=== PATIENT | female | born 1940 | race Caucasian/White ===

== ENCOUNTER 2018-04-18 11:42 | Day surgery (SDC) | payer OTHER ==
[~2018-04-18] VITALS: Ht 177.8 cm; Wt 96.8 kg
[~2018-04-18 11:42] MED LIST: ALLEGRA ALLERG180 M1 PO; ATOR20 PO; Alomide10 ML BOTHEYES; DEXL60CA3 PO; Depo-Medro80 MG/1 ML IJ; ESCI10 PO; ESCI20 PO; ESTRTP VAG; Flonase 0.05% N16 GM; GABA100 PO; HYDACE10B PO; HYOS.125 PO; HYOS.125 SL; LOSARTAN-HCTZ1 EAC1 PO; METF500 PO; METO100ER PO; MUPI2TC TOP; NADO40 PO; PRED10 PO; SAVELLA50 MG PO; TIZANIDINE HCL4 MG PO
== END 2018-04-18 13:50 | disposition home or self-care (01) ==
LOC: ORSCSDS 11:42
PROVIDERS: Internal Medicine Gastroenterology
PROC: 0DBH8ZX Excision of Cecum, Via Natural or Artificial Opening Endoscopic, Diagnostic (ICD-10-PCS; principal; 2018-04-18 13:00)
PROC: 0DBN8ZX Excision of Sigmoid Colon, Via Natural or Artificial Opening Endoscopic, Diagnostic (ICD-10-PCS; principal; 2018-04-18 13:00)
PROC: 0DBK8ZX Excision of Ascending Colon, Via Natural or Artificial Opening Endoscopic, Diagnostic (ICD-10-PCS; principal; 2018-04-18 13:00)
DX: Z12.11 Encounter for screening for malignant neoplasm of colon (principal); Z86.010 Personal history of colon polyps; D12.0 Benign neoplasm of cecum; D12.2 Benign neoplasm of ascending colon; K63.5 Polyp of colon; K57.30 Diverticulosis of large intestine without perforation or abscess without bleeding; K64.8 Other hemorrhoids; K64.4 Residual hemorrhoidal skin tags; I10 Essential (primary) hypertension; G47.33 Obstructive sleep apnea (adult) (pediatric); Z87.891 Personal history of nicotine dependence; E11.9 Type 2 diabetes mellitus without complications; K74.60 Unspecified cirrhosis of liver; Z79.899 Other long term (current) drug therapy
CPT/HCPCS: 82947; 88305; J7120

== ENCOUNTER → 2018-11-02 | Outpatient (CLI) | payer OTHER ==
[2018-11-02 09:57] LABS: Source, Urine Clean Catch
[2018-11-02 11:28] LABS: Appearance, Urine Clear (Clear); Bacteria Not Seen /hpf; Bilirubin, Urine Neg (Neg); Blood, Urine Neg (Neg); Color, Urine Yellow (P-Yellow); Glucose Qualitative, Urine Neg (Normal); Ketones, Urine Neg (Neg); Leukocyte Esterase, Urine Neg (Neg); Nitrite, Urine Neg (Neg); Protein, Urine Neg (Neg); Red Blood Cells, Urine Not Seen /hpf (0-2); Squamous Epithelial Cells Few /hpf (Few); Urobilinogen, Urine NORM (Normal)
== END | disposition home or self-care (01) ==
LOC: LAB EV 09:55 → LAB SHORT 09:55
PROVIDERS: Physician Assistant
DX: R30.0 Dysuria (principal)
CPT/HCPCS: 81001; 81003

== ENCOUNTER 2019-02-06 05:56 | Inpatient (IN) | payer OTHER ==
[~2019-02-06] VITALS: Ht 175.3 cm; Wt 92.3 kg
[~2019-02-06 05:56] MED LIST changes: +AMLO5 PO; +Azasan100 MG PO; +COSAMIN DS PO; +CYAN1000I IM; +CYCL0.05OP BOTHEYES; +DULO60 PO; +FERROUS SULFATE PO; +Garlic1 EAC1 PO; +LOSARTAN-HCTZ1 EACH PO; +Loratadine10 MG PO; +PANT40 PO; +POTASSIUM PO; +SUPER B COMPLEX PO; +TURMERIC PO; +Triamcinolone A15 G3 TOP; +VITAMIN D3 PO
--- NOTE | 2019-02-06 06:38 | NUR ---
[facility] VSS ADMISSION STARTED. Ambulatory in Day Surgery Lungs clear T/O to Auscultation. Patient confirms NPO status and agrees with scheduled surgery.
[2019-02-06] MEDS ORDERED: GENPREOPSU (06:42)
[2019-02-06] MEDS ORDERED: Prednisolone Ace5 ML OP (06:43)
--- NOTE | 2019-02-06 07:41 | NUR ---
AT 0715 HAD PATINET UP AND TO BATHROOM
--- NOTE | 2019-02-06 13:20 | NUR ---
VSS. DENIES PAIN. WIGGLES FEET. TOOK SOUP AND TOAST W/O C/O. RESTING QUIETLY WITH EYES CLOSED AT THIS TIME. IVF INFUSING. PAS AND CRYOTHERAPY IN PLACE. CALL LIGHT IN PLACE.
--- NOTE | 2019-02-06 18:12 | NUR ---
SHIFT SUMMARY PATIENT STATES FULL SENSATION TO LE'S. STATES NO PAIN AT THIS TIME AFTER PO PAIN JACK PRIZER. UP TO CHAIR WITH PT. INCONT VOID WHEN UP OOB. TAKING PO WELL. NO C/O AT THIS TIME.
[2019-02-07 04:41] LABS: BASOPHILS ABSOLUTE AUTO 0.01 K/mm3 (0.00-0.23); BASOPHILS PERCENT AUTO 0 % (0-2); EOSINOPHILS PERCENT AUTO 0 % (0-6); Hematocrit 30.7 % (33.0-51.0); Hemoglobin 10.6 g/dL (11.5-16.0); IMMATURE GRAN ABSOLUTE AUTO 0.07 K/mm3 (0.00-0.10); IMMATURE GRAN PERCENT AUTO 1 % (0-1); LYMPHOCYTES PERCENT AUTO 6 % (21-46); MONOCYTES ABSOLUTE AUTO 0.72 K/mm3 (0.16-1.47); MONOCYTES PERCENT AUTO 8 % (4-13); Mean Corpuscular HGB Conc 34.5 g/dL (31.5-36.5); Mean Corpuscular Volume 93 fL (80-100); Mean Platelet Volume 9.8 fL (9.1-12.4); NEUTROPHILS ABSOLUTE AUTO 7.51 K/mm3 (1.96-9.15); NEUTROPHILS PERCENT AUTO 85 % (41-73); Platelet Count 191 K/mm3 (150-400); RDW Coefficient Variation 13.3 % (11.7-14.2); RDW Standard Deviation 45.3 fL (35.1-46.3); Red Blood Cell Count 3.31 M/mm3 (3.80-5.20); White Blood Cell Count 8.81 K/mm3 (4.00-11.30)
[2019-02-07 05:01] LABS: Anion Gap 7 mmol/L (6-16); Blood Urea Nitrogen 20 mg/dL (8-24); Bun/Creatinine Ratio 25.8 (12.0-20.0); CO2, Blood 27 mmol/L (21-32); Calcium, Blood 8.8 mg/dL (8.5-10.1); Chloride, Blood 92 mmol/L (98-108); Creatinine, Blood 0.78 mg/dL (0.40-1.00); Glomerular Filtration Rate >60 (60-); Glucose, Blood 129 mg/dL (70-99); Magnesium, Blood 1.4 mg/dL (1.6-2.4); Potassium, Blood 3.7 mmol/L (3.5-5.5); Sodium, Blood 126 mmol/L (136-145)
--- NOTE | 2019-02-07 07:00 | NUR ---
SHIFT SUMMARY: PT POD #1 FOR LEFT TOTAL KNEE. PT A&O X4. VS WNL. PAIN MANAGED WITH 5MG OXY AND SCHED TORADOL AND TYLENOL. PT OUT OF BED TO BATHROOM W/FWW + 1 ASSIST. VOIDING. SALINE LOCKED. DIANE PO. DENIES N/V. AQUACEL CDI WITH POLAR PACK IN PLACE.
--- NOTE | 2019-02-07 11:13 | NUR ---
PT WORKING WITH THERAPY.
[2019-02-07] MEDS ORDERED: OXYC5 PO (16:33)
[2019-02-07] MEDS ORDERED: ACET500 PO (16:40)
[2019-02-07] MEDS ORDERED: Aspirin325 MG PO (16:42)
--- NOTE | 2019-02-07 17:10 | NUR ---
DISCHARGE: PT EATING AND DRINKING WELL. PT PASSING GAS AND VOIDING. PT REPORTS PAIN TOLERABLE ON PO PAIN MEDICATION. PT BEEN CLEARED BY THERAPY TO GO HOME. PT BEEN CLEARED BY DR TO GO HOME TODAY. PT REPORTS HAVING APPR EQUIP AT HOME. PT SENT WITH DRESSING SUPPLIES AND ICE MACHINE. PT AND FAMILY REPORTS UNDERSTANDING OF DISCHARGE INSTRUCTIONS.
--- NOTE | 2019-02-09 13:24 | NUR ---
02/09/19 1324 Sally Leslie VERIFICATIONS: EDIT CHART.
== END 2019-02-07 17:20 | disposition home or self-care (01) | DRG 470 ==
LOC: ORSCMMR 05:56 → ORD 07:30 → ORSCMMR 07:49 → SURS 07:49 → ORD 08:30 → SURS 11:48
PROVIDERS: ADMIT Orthopaedic Surgery
PROC: 0SRD0J9 Replacement of Left Knee Joint with Synthetic Substitute, Cemented, Open Approach (ICD-10-PCS; principal; 2019-02-06 07:30)
DX: M17.12 Unilateral primary osteoarthritis, left knee (principal); I10 Essential (primary) hypertension; E11.9 Type 2 diabetes mellitus without complications; G47.33 Obstructive sleep apnea (adult) (pediatric); Z88.2 Allergy status to sulfonamides
CPT/HCPCS: 36415; 73560-LT; 80048; 82947; 83735; 85025; 88300; 94762; 97110; 97116; 97162; 97530; C1713; C1776; J0171; J0690; J0735; J1100; J1885; J2250; J2370; J2405; J2704; J2795; J7120; J7500

== ENCOUNTER → 2019-04-09 | Outpatient (CLI) | payer OTHER ==
[~2019-04-09] MED LIST changes: +ACET500 PO; +Aspirin325 MG PO; +GENPREOPSU; +OXYC5 PO; +Prednisolone Ace5 ML OP
[2019-04-09 08:48] LABS: Microalb/Creat Ratio UR, Rand Unable to Calculate mg/g (0.000-30.000); Microalbumin, Random Urine <5.000 mg/L (0.000-20.000)
== END | disposition home or self-care (01) ==
LOC: LAB EV 06:29
PROVIDERS: Family Medicine
DX: E78.49 Other hyperlipidemia (principal); I10 Essential (primary) hypertension; E11.9 Type 2 diabetes mellitus without complications
CPT/HCPCS: 82043; 82570

== ENCOUNTER 2020-02-09 08:25 | Day surgery (SDC) | payer OTHER ==
[~2020-02-09] VITALS: Ht 175.3 cm; Wt 86.5 kg
[2020-02-09] MEDS ORDERED: LOSA50 PO (09:31)
[2020-02-09] MEDS ORDERED: DIVA500ER PO (09:33)
[2020-02-09] MEDS ORDERED: CEPH500 PO (09:36)
[2020-02-09] MEDS ORDERED: EMGALITY120 MG/1 M SC (09:39)
[2020-02-09] MEDS ORDERED: ATOR20 PO (09:40)
[2020-02-09] MEDS ORDERED: IMITREX100 MG PO (09:41)
[2020-02-09] MEDS ORDERED: IMITREX6 MG/0.51 SC (09:42)
--- NOTE | 2020-02-09 12:03 | NUR ---
02/09/20 1203 Lorri Schultz SUCTIONED SMALL AMOUNT OF BLOOD FROM ORAL CAVITY AFTER OPA WAS REMOVED.
== END 2020-02-09 13:01 | disposition home or self-care (01) ==
LOC: ORSCSDS 08:25
PROVIDERS: Otolaryngology
PROC: 0NSBXZZ Reposition Nasal Bone, External Approach (ICD-10-PCS; principal; 2020-02-09 11:30)
DX: S02.2XXA Fracture of nasal bones, initial encounter for closed fracture (principal); I10 Essential (primary) hypertension; E11.9 Type 2 diabetes mellitus without complications; G47.33 Obstructive sleep apnea (adult) (pediatric); Z87.891 Personal history of nicotine dependence; Z79.84 Long term (current) use of oral hypoglycemic drugs; Z79.899 Other long term (current) drug therapy
CPT/HCPCS: 82947; C9046; J0330; J1100; J2250; J2405; J2704; J3010; J7120

== ENCOUNTER 2022-02-10 15:15 | Emergency (ER) | payer OTHER ==
[~2022-02-10] VITALS: Ht 177.8 cm; Wt 95.2 kg
[~2022-02-10 15:15] MED LIST changes: +CEPH500 PO; +DIVA500ER PO; +EMGALITY120 MG/1 M SC; +GABA300; +IMITREX100 MG PO; +IMITREX6 MG/0.51 SC; +LOSA50 PO; +MYRBETRIQ50 MG
== END 2022-02-10 18:10 | disposition home or self-care (01) ==
LOC: ER 15:15
DX: M54.50 Low back pain, unspecified (principal); M48.54XA Collapsed vertebra, not elsewhere classified, thoracic region, initial encounter for fracture; M51.36 Other intervertebral disc degeneration, lumbar region; M47.9 Spondylosis, unspecified; K59.00 Constipation, unspecified; Z88.2 Allergy status to sulfonamides; Z79.899 Other long term (current) drug therapy; Z87.891 Personal history of nicotine dependence
CPT/HCPCS: 72100; J1100; J1170

== ENCOUNTER 2022-03-01 12:07 | Inpatient (IN) | payer OTHER ==
[~2022-03-01] VITALS: Ht 177.8 cm; Wt 93.7 kg
[~2022-03-01 12:07] MED LIST changes: -GABA300; +GABA300 PO; +Norco 5-325 Ta1 EACH PO
[2022-03-01 13:13] LABS: BASOPHILS ABSOLUTE AUTO 0.01 K/mm3 (0.00-0.23); BASOPHILS PERCENT AUTO 0 % (0-2); EOSINOPHILS ABSOLUTE AUTO 0.02 K/mm3 (0.00-0.68); EOSINOPHILS PERCENT AUTO 0 % (0-6); Hematocrit 37.5 % (33.0-51.0); Hemoglobin 13.5 g/dL (11.5-16.0); IMMATURE GRAN ABSOLUTE AUTO 0.04 K/mm3 (0.00-0.10); IMMATURE GRAN PERCENT AUTO 1 % (0-1); LYMPHOCYTES ABSOLUTE AUTO 0.64 K/mm3 (0.84-5.20); LYMPHOCYTES PERCENT AUTO 9 % (21-46); MONOCYTES ABSOLUTE AUTO 1.03 K/mm3 (0.16-1.47); MONOCYTES PERCENT AUTO 14 % (4-13); Mean Corpuscular HGB 31.3 pg (26.0-34.0); Mean Corpuscular Volume 87 fL (80-100); Mean Platelet Volume 9.5 fL (9.1-12.4); NEUTROPHILS ABSOLUTE AUTO 5.82 K/mm3 (1.96-9.15); NEUTROPHILS PERCENT AUTO 77 % (41-73); Platelet Count 225 K/mm3 (150-400); RDW Coefficient Variation 13.4 % (11.7-14.2); Red Blood Cell Count 4.32 M/mm3 (3.80-5.20); White Blood Cell Count 7.56 K/mm3 (4.00-11.30)
[2022-03-01 13:32] LABS: Albumin, Blood 3.7 g/dL (3.4-5.0); Albumin/Globulin Ratio 0.9 (0.8-1.8); Bilirubin, Total 1.3 mg/dL (0.1-1.0); Bun/Creatinine Ratio 18.5 (12.0-20.0); Calcium, Blood 9.4 mg/dL (8.5-10.1); Creatinine, Blood 0.7 mg/dL (0.40-1.00); Globulin, Blood 3.9 g/dL (2.2-4.0); Potassium, Blood 3.7 mmol/L (3.5-5.5); Total Protein, Blood 7.6 g/dL (6.4-8.2)
[2022-03-01 13:43] LABS: Source, Urine Foley catheter
[2022-03-01 13:51] LABS: Appearance, Urine Hazy (Clear); Bilirubin, Urine Neg (Neg); Blood, Urine 1+ (Neg); Color, Urine Yellow (P-Yellow); Glucose Qualitative, Urine Neg (Neg); Ketones, Urine 1+ (Neg); Leukocyte Esterase, Urine Neg (Neg); Nitrite, Urine Neg (Neg); Protein, Urine 2+ (Neg); Specific Gravity, Urine 1.015 (1.003-1.022); Urobilinogen, Urine NORM (Normal)
[2022-03-01 14:45] LABS: Amorphous Heavy (0-Heavy); Bacteria Mod /hpf; Red Blood Cells, Urine 0-2 /hpf (0-2); Renal Epithelial Rare /hpf (0-Rare); Squamous Epithelial Cells Rare /hpf (Few); Transitional Epithelial Cells Few /hpf (0-Rare)
[2022-03-01 15:06] LABS: U Amphetamine Screen Not Detected; U Barbituate Screen Not Detected; U Benzodiazapine Screen Not Detected; U Buprenorphine Screen Not Detected; U Cannabinoids Screen Not Detected; U Cocaine Screen Not Detected; U Methadone Screen Not Detected; U Methamphetamine Screen Not Detected; U Opiates Screen DETECTED; U Oxycodone Screen Not Detected; U Phencyclidine Screen Not Detected; U Propoxyphene Screen Not Detected
[2022-03-01 16:17] LABS: Influenza A, PCR NEGATIVE (NEGATIVE); Influenza B, PCR NEGATIVE (NEGATIVE); Resp Syncytial Virus, PCR NEGATIVE (NEGATIVE); SARS-Cov-2 (COVID-19) PCR, MMC NEGATIVE (NEGATIVE)
--- NOTE | 2022-03-01 19:25 | NUR ---
REPORT RECEIVED FROM MICHAELLE DAIGLE RN. PT TX TO ROOM 309 VIA [employer]. PT ORIENTED TO ROOM/CALL LIGHT. REPORT GIVEN TO SILVINO/CHERRY WEBBER.
--- NOTE | 2022-03-02 04:36 | NUR ---
SHIFT SUMMARY ADMITTED THIS SHIFT FOR AMS/BACK PAIN. PLAN IS FOR THERAPY PLACEMENT. FULL CODE. HX OF FALLS. THORACIC COMPRESSION FRACTURE. SPOUSE IN ROOMPT IS CONFUSED AND FORGETFUL. PHYSICAL AND OCCUPATIONAL THERAPIES ASSISTING WITH PT. PT SLEPT THROUGHOUT SHIFT.
[2022-03-02 05:36] LABS: BASOPHILS ABSOLUTE AUTO 0.02 K/mm3 (0.00-0.23); BASOPHILS PERCENT AUTO 0 % (0-2); EOSINOPHILS ABSOLUTE AUTO 0.06 K/mm3 (0.00-0.68); EOSINOPHILS PERCENT AUTO 1 % (0-6); Hemoglobin 14.1 g/dL (11.5-16.0); IMMATURE GRAN ABSOLUTE AUTO 0.02 K/mm3 (0.00-0.10); IMMATURE GRAN PERCENT AUTO 0 % (0-1); LYMPHOCYTES ABSOLUTE AUTO 0.74 K/mm3 (0.84-5.20); LYMPHOCYTES PERCENT AUTO 12 % (21-46); MONOCYTES ABSOLUTE AUTO 0.67 K/mm3 (0.16-1.47); MONOCYTES PERCENT AUTO 11 % (4-13); Mean Corpuscular HGB 31.4 pg (26.0-34.0); Mean Corpuscular HGB Conc 36.2 g/dL (31.5-36.5); Mean Corpuscular Volume 87 fL (80-100); Mean Platelet Volume 9.4 fL (9.1-12.4); NEUTROPHILS ABSOLUTE AUTO 4.49 K/mm3 (1.96-9.15); NEUTROPHILS PERCENT AUTO 75 % (41-73); Platelet Count 235 K/mm3 (150-400); RDW Coefficient Variation 13.3 % (11.7-14.2); RDW Standard Deviation 41.8 fL (35.1-46.3); Red Blood Cell Count 4.49 M/mm3 (3.80-5.20)
--- NOTE | 2022-03-02 05:36 | NUR ---
URINARY INCONTINENCE PT HAD A PUREWICK PLACED UPON ADMIT TO THE MEDICAL FLOOR BUT ONLY HAD TRACE AMOUNTS OF URINE DRAINED AFTER 8 HOURS. A BLADDER SCAN WAS DONE AND READ 736 ML. WE STARTED TO AMBULATE THE PT TO THE BEDSIDE COMMODE AND SHE VOIDED IMMEDIATLY UPON STANDING.
[2022-03-02 06:14] LABS: Bun/Creatinine Ratio 22.2 (12.0-20.0); Calcium, Blood 9.3 mg/dL (8.5-10.1); Creatinine, Blood 0.54 mg/dL (0.40-1.00); Potassium, Blood 3.3 mmol/L (3.5-5.5); Thyroid Stimulating Hormone 4.09 uIU/mL (0.360-4.800)
[2022-03-02 10:42] LABS: BASOPHILS ABSOLUTE AUTO 0.02 K/mm3 (0.00-0.23); BASOPHILS PERCENT AUTO 1 % (0-2); EOSINOPHILS ABSOLUTE AUTO 0.04 K/mm3 (0.00-0.68); EOSINOPHILS PERCENT AUTO 1 % (0-6); Hematocrit 36.2 % (33.0-51.0); Hemoglobin 13.2 g/dL (11.5-16.0); IMMATURE GRAN ABSOLUTE AUTO 0.02 K/mm3 (0.00-0.10); IMMATURE GRAN PERCENT AUTO 1 % (0-1); LYMPHOCYTES ABSOLUTE AUTO 0.45 K/mm3 (0.84-5.20); LYMPHOCYTES PERCENT AUTO 11 % (21-46); MONOCYTES ABSOLUTE AUTO 0.51 K/mm3 (0.16-1.47); MONOCYTES PERCENT AUTO 12 % (4-13); Mean Corpuscular HGB 31.7 pg (26.0-34.0); Mean Corpuscular HGB Conc 36.5 g/dL (31.5-36.5); Mean Corpuscular Volume 87 fL (80-100); Mean Platelet Volume 9.7 fL (9.1-12.4); NEUTROPHILS ABSOLUTE AUTO 3.16 K/mm3 (1.96-9.15); NEUTROPHILS PERCENT AUTO 75 % (41-73); Platelet Count 180 K/mm3 (150-400); RDW Coefficient Variation 13.2 % (11.7-14.2); RDW Standard Deviation 42.1 fL (35.1-46.3); Red Blood Cell Count 4.17 M/mm3 (3.80-5.20)
[2022-03-02 11:09] LABS: Albumin, Blood 3.5 g/dL (3.4-5.0); Albumin/Globulin Ratio 0.9 (0.8-1.8); Bilirubin, Total 1.5 mg/dL (0.1-1.0); Bun/Creatinine Ratio 22.7 (12.0-20.0); Calcium, Blood 8.9 mg/dL (8.5-10.1); Creatinine, Blood 0.49 mg/dL (0.40-1.00); Globulin, Blood 3.9 g/dL (2.2-4.0); Potassium, Blood 3.3 mmol/L (3.5-5.5); Total Protein, Blood 7.4 g/dL (6.4-8.2)
--- NOTE | 2022-03-02 15:56 | NUR ---
DR. LINK CONTACTED REGAURDING PT'S HTN. PLAN TO REVIEW MEDS AND ADJUST TO BETTER CONTROL HTN.
--- NOTE | 2022-03-02 18:36 | NUR ---
SHIFT SUMMARY PT A&OX 3 AND IN PLEASENT MOOD T/O SHIFT. PT IN TO SEE PT T/O VISITING HOURS. PT WORKED W/ SPEECH, OCCUPATION, AND PHYSICAL THERAPY T/O SHIFT. BED ALARM IN PLACE. CALL LIGHT W/IN REACH. HTN MEDICATED AND REPORTED TO DR. GARAY MEDICATED PER EMAR AND HEAT PAD.
--- NOTE | 2022-03-03 04:06 | NUR ---
KEYING MACHINE OPERATOR SUMMARY PT SPOUSE AT BEDSIDE. PT IS A/OX3. PT IS IS SLOW TO RESPOND AND SLOW TO FOLLOW COMMANDS. INCONTINENT OF URINE. ASSITED PT TO BSC AND SHE LEAKED URINE DURING THE XFER. PT RETAINING URINE; BLADDER SCAN 444MLS AFTER VOIDING. OBTAINED ORDER AND USED STRAIGHT CATH TO DRAIN 750MLS FROM BLADDER. PT WAS RESTLESS WITH FULL BLADDER AND CONTINUED TO TRY TO GET OUT OF BED. PT FORGETS LIMITATIONS AND IS A 2 PERSON MAX ASSIST. EDUCATED PT/AND ABOUT BLOOD PRESSURE MEDICATIONS AND INSULIN. PT IS PLEASANT AND COOPERATIVE BUT APPEARS ANXIOUS AND TEARY AT TIMES.
[2022-03-03 05:30] LABS: BASOPHILS ABSOLUTE AUTO 0.02 K/mm3 (0.00-0.23); BASOPHILS PERCENT AUTO 1 % (0-2); EOSINOPHILS ABSOLUTE AUTO 0.04 K/mm3 (0.00-0.68); EOSINOPHILS PERCENT AUTO 1 % (0-6); Hematocrit 36.7 % (33.0-51.0); Hemoglobin 13.2 g/dL (11.5-16.0); IMMATURE GRAN ABSOLUTE AUTO 0.02 K/mm3 (0.00-0.10); IMMATURE GRAN PERCENT AUTO 1 % (0-1); LYMPHOCYTES PERCENT AUTO 15 % (21-46); MONOCYTES ABSOLUTE AUTO 0.55 K/mm3 (0.16-1.47); MONOCYTES PERCENT AUTO 14 % (4-13); Mean Corpuscular HGB 31.4 pg (26.0-34.0); Mean Corpuscular Volume 87 fL (80-100); Mean Platelet Volume 9.4 fL (9.1-12.4); NEUTROPHILS ABSOLUTE AUTO 2.68 K/mm3 (1.96-9.15); NEUTROPHILS PERCENT AUTO 69 % (41-73); Platelet Count 206 K/mm3 (150-400); RDW Coefficient Variation 13.2 % (11.7-14.2); RDW Standard Deviation 42.4 fL (35.1-46.3); White Blood Cell Count 3.91 K/mm3 (4.00-11.30)
[2022-03-03 06:04] LABS: Albumin, Blood 3.4 g/dL (3.4-5.0); Albumin/Globulin Ratio 0.8 (0.8-1.8); Bun/Creatinine Ratio 14.4 (12.0-20.0); Calcium, Blood 8.9 mg/dL (8.5-10.1); Creatinine, Blood 0.49 mg/dL (0.40-1.00); Globulin, Blood 4.1 g/dL (2.2-4.0); Magnesium, Blood 1.2 mg/dL (1.6-2.4); Phosphorus, Blood 2.2 mg/dL (2.5-4.9); Potassium, Blood 3.7 mmol/L (3.5-5.5); Total Protein, Blood 7.5 g/dL (6.4-8.2)
--- NOTE | 2022-03-03 07:07 | NUR ---
ROLLING MILL OPERATOR HELPER SUMMARY ADD PT UNABLE TO VOID COMPLETELY; BLADDER SCAN SHOWED 518MLS URINE RETAINED. PERFORMED STRAIGHT CATH; DRAINED 650MLS URINE; YELLOW/CLEAR.
--- NOTE | 2022-03-03 16:49 | NUR ---
SHIFT SUMMARY PT A&OX 3 AND IN PLEASENT MOOD T/O SHIFT. IN W/ PT T/O SHIFT ASSISTING W/ CARE. PT VOIDING MIN. AMOUNTS BLADDER SCANNING T/O SHIFT-PLANNING TO STRAIGHT CATH PT. PRN. PT EATING MINIMAL AMOUNTS OF PUREE, SPOUSE VERBALIZING CONCERN. UP TO BSC, 2X MAX ASSIST. CALL LIGHT W/IN REACH.
[2022-03-04 01:21] LABS: Source, Urine Foley catheter
[2022-03-04 01:31] LABS: Bilirubin, Urine Neg (Neg); Blood, Urine 1+ (Neg); Glucose Qualitative, Urine Neg (Neg); Ketones, Urine Neg (Neg); Leukocyte Esterase, Urine 1+ (Neg); Nitrite, Urine Neg (Neg); Protein, Urine 2+ (Neg); Specific Gravity, Urine 1.005 (1.003-1.022); Urobilinogen, Urine NORM (Normal)
[2022-03-04 01:39] LABS: Appearance, Urine Hazy (Clear); Color, Urine Yellow (P-Yellow)
[2022-03-04 01:40] LABS: Bacteria Many /hpf; Red Blood Cells, Urine 0-2 /hpf (0-2); Squamous Epithelial Cells Not Seen /hpf (Few); White Blood Cells, Urine 50-100 /hpf (0-5)
--- NOTE | 2022-03-04 05:40 | NUR ---
MAINTENANCE MECHANIC TECHNICIAN SUMMARY PT IS PLEASANT AND COOPERATIVE. A/OX3; AMS. MOVES BETWEEN CONFUSED AND CONTRETE THINKING. PT PULLED OUT LEFT IV ACCESS. MULTIPLE FAILED ATTEMPTS TO START IV; ICU NURSE INSTERTED HIMA POWER GLIDE. CONTINOUS IV FLUIDS RUNNING AT 75MLS HOUR. PT TO BSC TWICE AND UNABLE TO COMPLETELY EMPTY BLADDER. PLACED AYALA; DRAINING TO GRAVITY. URINE SHOWS POSSIBLE UTI. PT ON CPAP T/O NIGHT. CALL LIGHT IN REACH. AT BEDSIDE.
[2022-03-04 05:41] LABS: Bun/Creatinine Ratio 12.3 (12.0-20.0); Creatinine, Blood 0.57 mg/dL (0.40-1.00); Potassium, Blood 3.6 mmol/L (3.5-5.5)
--- NOTE | 2022-03-04 18:14 | NUR ---
SHIFT SUMMARY PT A&OX3 AND IN PLEASENT MOOD T/O SHIFT. @ BEDSIDE T/O SHIFT. CALL LIGHT W/ IN REACH. TOLERATING PO INTAKE. LOOSE BM THIS SHIFT, PLAN TO HOLD BOWEL MEDS. VSS. AYALA IN PLACE DRAINING TO GRAVITY. NS @ 50/HR. RA.
--- NOTE | 2022-03-05 03:05 | NUR ---
TRAFFIC WORKFORCE REPRESENTATIVE SUMMARY VSS. AYALA DRAINING ELA. REMAINS AT BEDSIDE AND ASSISTS WITH PT CARE. HAS BEEN RESTING QUIETLY WITH FEW INTERRUPTIONS SINCE HS. HOB ELEVATED AT 40 DEGREES. REPOSITIONED INTERMITTENTLY FOR COMFORT AND SKIN CARE. CALL LIGHT IN REACH. ALERT TO QUESTIONS ASKED AND PLEASANT AFFECT, BUT STILL SOME CONFUSION AT TIMES. NO NOTED S/S ACUTE DISTRESS OF THIS WRITING. SCD'S IN USE
[2022-03-05 04:51] LABS: BASOPHILS ABSOLUTE AUTO 0.03 K/mm3 (0.00-0.23); BASOPHILS PERCENT AUTO 1 % (0-2); EOSINOPHILS ABSOLUTE AUTO 0.06 K/mm3 (0.00-0.68); EOSINOPHILS PERCENT AUTO 1 % (0-6); Hematocrit 36.3 % (33.0-51.0); IMMATURE GRAN ABSOLUTE AUTO 0.02 K/mm3 (0.00-0.10); IMMATURE GRAN PERCENT AUTO 0 % (0-1); LYMPHOCYTES ABSOLUTE AUTO 0.94 K/mm3 (0.84-5.20); LYMPHOCYTES PERCENT AUTO 16 % (21-46); MONOCYTES PERCENT AUTO 12 % (4-13); Mean Corpuscular HGB 31.6 pg (26.0-34.0); Mean Corpuscular HGB Conc 35.8 g/dL (31.5-36.5); Mean Corpuscular Volume 88 fL (80-100); Mean Platelet Volume 9.4 fL (9.1-12.4); NEUTROPHILS ABSOLUTE AUTO 3.99 K/mm3 (1.96-9.15); NEUTROPHILS PERCENT AUTO 70 % (41-73); Platelet Count 219 K/mm3 (150-400); RDW Coefficient Variation 13.2 % (11.7-14.2); RDW Standard Deviation 42.4 fL (35.1-46.3); Red Blood Cell Count 4.12 M/mm3 (3.80-5.20); White Blood Cell Count 5.74 K/mm3 (4.00-11.30)
[2022-03-05 05:15] LABS: Bun/Creatinine Ratio 13.2 (12.0-20.0); Calcium, Blood 8.5 mg/dL (8.5-10.1); Creatinine, Blood 0.45 mg/dL (0.40-1.00); Potassium, Blood 3.3 mmol/L (3.5-5.5)
--- NOTE | 2022-03-05 17:31 | NUR ---
SHIFT SUMMARY PT A&OX 3-4 AND IN PLEASENT MOOD T/O SHIFT. IN ROOM T/O SHIFT. AC/HS GLUCOSE CHECKS D/DANIEL THIS SHIFT, NO COVERAGE HAS BEEN INDICATED. WORKED W/ PHYSICAL, OCCUPATIONAL AND SPEECH THERAPY THIS SHIFT. DIET ADVANCED TO [facility] SOFT, PILLS WHOLE ONE AT A TIME W/ THIN LIQUIDS. SHOWERED, ABLE TO AMBULATE SAFELY 1X W/ A STEADY GAIT. CALL LIGHT W/IN REACH. AWAITING PLACEMENT @ THIS TIME.
--- NOTE | 2022-03-06 04:28 | NUR ---
WOODWORKING MACHINIST SUMMARY MORE ALERT AT SHIFT COMMENCE THN NOTED 24 HR AGO. VERBAL RESPONSE APPROPRIATE AND SEEMED TO REMEMBER LONGER THAN NOTED BEFORE. AYALA DRAINING ELA. TOLERATING PO FLUIDS. VSS. CONTINUES TO PROVIDE PT SUPPORT AT BEDSIDE. O2 PER CPAP AT NIGHT, HOB UP 30 DEGREES. CONTINUOUS PULSE OX 90'S. HAS BEEN RESTING QUIETLY WITH OCCASIONAL INTERRUPTION. CALL LIGHT IN REACH. NO NOTED S/S ACUTE DISTRESS
[2022-03-06 05:21] LABS: BASOPHILS ABSOLUTE AUTO 0.03 K/mm3 (0.00-0.23); BASOPHILS PERCENT AUTO 1 % (0-2); EOSINOPHILS ABSOLUTE AUTO 0.08 K/mm3 (0.00-0.68); EOSINOPHILS PERCENT AUTO 1 % (0-6); Hematocrit 39.2 % (33.0-51.0); Hemoglobin 14.2 g/dL (11.5-16.0); IMMATURE GRAN ABSOLUTE AUTO 0.02 K/mm3 (0.00-0.10); IMMATURE GRAN PERCENT AUTO 0 % (0-1); LYMPHOCYTES ABSOLUTE AUTO 0.76 K/mm3 (0.84-5.20); LYMPHOCYTES PERCENT AUTO 13 % (21-46); MONOCYTES ABSOLUTE AUTO 0.62 K/mm3 (0.16-1.47); MONOCYTES PERCENT AUTO 11 % (4-13); Mean Corpuscular HGB 31.6 pg (26.0-34.0); Mean Corpuscular HGB Conc 36.2 g/dL (31.5-36.5); Mean Corpuscular Volume 87 fL (80-100); Mean Platelet Volume 9.2 fL (9.1-12.4); NEUTROPHILS ABSOLUTE AUTO 4.42 K/mm3 (1.96-9.15); NEUTROPHILS PERCENT AUTO 75 % (41-73); Platelet Count 235 K/mm3 (150-400); RDW Coefficient Variation 13.2 % (11.7-14.2); RDW Standard Deviation 41.6 fL (35.1-46.3); White Blood Cell Count 5.93 K/mm3 (4.00-11.30)
[2022-03-06 05:49] LABS: Albumin, Blood 3.5 g/dL (3.4-5.0); Albumin/Globulin Ratio 0.9 (0.8-1.8); Bilirubin, Total 0.9 mg/dL (0.1-1.0); Bun/Creatinine Ratio 10.9 (12.0-20.0); Calcium, Blood 9.3 mg/dL (8.5-10.1); Creatinine, Blood 0.55 mg/dL (0.40-1.00); Globulin, Blood 4.1 g/dL (2.2-4.0); Potassium, Blood 3.7 mmol/L (3.5-5.5); Total Protein, Blood 7.6 g/dL (6.4-8.2)
[2022-03-06 10:33] LABS: Influenza A, PCR NEGATIVE (NEGATIVE); Influenza B, PCR NEGATIVE (NEGATIVE); Resp Syncytial Virus, PCR NEGATIVE (NEGATIVE); SARS-Cov-2 (COVID-19) PCR, MMC NEGATIVE (NEGATIVE)
[2022-03-06] MEDS ORDERED: Prinivil10 MG PO (12:37)
[2022-03-06] MEDS ORDERED: NYSTATIN100000 U10 MT (12:39)
[2022-03-06] MEDS ORDERED: SODCHL1 PO (12:39)
[2022-03-06] MEDS ORDERED: VISBIOME 112.51 EACH PO (12:40)
[2022-03-06] MEDS ORDERED: SUPRAX400 MG PO (12:40)
--- NOTE | 2022-03-06 15:18 | NUR ---
DISCHARGE SUMMARY PATIENT DISCHARGED TO [facility]. REPORT CALLED TO ABAD WEBBER. DISCHARGE PAPERWORK REVIEWED WITH PATIENT AND HER . ALL QUESTIONS ANSWERED. PATIENT TAKEN VIA WHEELCHAIR TRANSPORT SERVICE. PAPERWORK FOR FACILITY AND HARD SCRIPT GIVEN TO TRANSPORT. ALL PATIENTS BELONGINGS TAKEN BY . IV D/C'D. PATIENT LEFT WEARING BACK BRACE.
== END 2022-03-06 15:15 | DRG 640 ==
LOC: ER 12:07 → MEDS 12:08 → ER 16:45 → MEDS 19:15
PROVIDERS: Emergency Medicine; Family Medicine; Hospitalist; Internal Medicine; ADMIT Internal Medicine
DX: E87.1 Hypo-osmolality and hyponatremia (principal); G92.8 Other toxic encephalopathy; N39.0 Urinary tract infection, site not specified; M48.54XA Collapsed vertebra, not elsewhere classified, thoracic region, initial encounter for fracture; F03.90 Unspecified dementia, unspecified severity, without behavioral disturbance, psychotic disturbance, mood disturbance, and anxiety; E11.9 Type 2 diabetes mellitus without complications; R33.9 Retention of urine, unspecified; G47.33 Obstructive sleep apnea (adult) (pediatric); I11.0 Hypertensive heart disease with heart failure; Z20.822 Contact with and (suspected) exposure to COVID-19; F32.A Depression, unspecified; B96.20 Unspecified Escherichia coli [E. coli] as the cause of diseases classified elsewhere; Z88.2 Allergy status to sulfonamides; E78.5 Hyperlipidemia, unspecified; M35.3 Polymyalgia rheumatica; Z98.890 Other specified postprocedural states; Z96.652 Presence of left artificial knee joint; Z66 Do not resuscitate; Z79.899 Other long term (current) drug therapy; K74.60 Unspecified cirrhosis of liver; Z85.828 Personal history of other malignant neoplasm of skin; E87.6 Hypokalemia; K75.4 Autoimmune hepatitis
CPT/HCPCS: 0241U; 36415; 70450; 71045; 80048; 80053; 81001; 82140; 82436; 82947; 83735; 84100; 84300; 84443; 85025; 87077; 87086; 87186; 92526; 92610; 93005; 93010; 94660; 94762; 96372; 97162; 97166; 97530; 97535; 99285; 99285-25; A9270; C1751; G0378; J0696; J1650; J7030; J7500; P9612

== ENCOUNTER → 2022-03-13 | Outpatient (CLI) | payer OTHER ==
[~2022-03-13] MED LIST changes: +NYSTATIN100000 U10 MT; +Prinivil10 MG PO; +SODCHL1 PO; +SUPRAX400 MG PO; +VISBIOME 112.51 EACH PO
== END ==
LOC: LAB SHORT 15:04 → LAB 15:04
DX: D36.17 Benign neoplasm of peripheral nerves and autonomic nervous system of trunk, unspecified (principal)
CPT/HCPCS: 88305

== ENCOUNTER 2022-11-08 07:58 | Day surgery (SDC) | payer OTHER ==
[~2022-11-08] VITALS: Ht 177.8 cm; Wt 95.8 kg
[2022-11-08] MEDS ORDERED: BISA10S (08:35)
[2022-11-08] MEDS ORDERED: 1/2 NS 250ml250 ML (08:35)
[2022-11-08] MEDS ORDERED: ALLEGRA ALLERG180 MG (08:36)
[2022-11-08] MEDS ORDERED: AZAT50 (08:36)
[2022-11-08] MEDS ORDERED: GABA300 (08:37)
[2022-11-08] MEDS ORDERED: EMGALITY120 MG/1 M (08:37)
[2022-11-08] MEDS ORDERED: SUMA5NI (08:37)
[2022-11-08] MEDS ORDERED: TIZA4 (08:38)
[2022-11-08] MEDS ORDERED: FERSU90EL (08:38)
[2022-11-08 10:34] VITALS: BP 113/60
== END 2022-11-08 10:20 | disposition home or self-care (01) ==
LOC: ORSCSDS 07:58
PROVIDERS: Internal Medicine Gastroenterology
PROC: 0DJ08ZZ Inspection of Upper Intestinal Tract, Via Natural or Artificial Opening Endoscopic (ICD-10-PCS; principal; 2022-11-08 09:30)
DX: R10.12 Left upper quadrant pain (principal); R10.11 Right upper quadrant pain; R68.81 Early satiety; K22.89 Other specified disease of esophagus; I85.10 Secondary esophageal varices without bleeding; K44.9 Diaphragmatic hernia without obstruction or gangrene; K76.6 Portal hypertension; K31.89 Other diseases of stomach and duodenum; K74.60 Unspecified cirrhosis of liver; K31.819 Angiodysplasia of stomach and duodenum without bleeding; I10 Essential (primary) hypertension; K75.4 Autoimmune hepatitis; Z79.899 Other long term (current) drug therapy
CPT/HCPCS: 82947; J2704; J7120

== ENCOUNTER 2023-02-11 06:17 | Day surgery (SDC) | payer OTHER ==
[2023-02-11] VITALS (19 sets, daily range): BP systolic 98–135; BP diastolic 51–75
[~2023-02-11] VITALS: Ht 175.3 cm; Wt 94.4 kg
[~2023-02-11 06:17] MED LIST changes: +1/2 NS 250ml250 ML; +ALLEGRA ALLERG180 MG PO; +AZAT50 PO; +BISA10S; +EMGALITY120 MG/1 M; +FERSU90EL; +SUMA5NI; +TIZA4; +[UNRECOGNIZED DRUG - OTHER] BOTHEYES
--- NOTE | 2023-02-11 06:35 | NUR ---
Into sds via wheelchair. History, Chart, Medications and Allergies reviewed before start of procedure.Patient confirms NPO status and agrees with scheduled surgery. Lungs clear T/O to Auscultation. Patient reports completing Chlorhexadine shower X2 prior to admission to hospital.Surgical site prepped with 2% Chlorhexidine cloth wipe.
--- NOTE | 2023-02-11 07:35 | NUR ---
PT DENTURES TAKEN TO PACU FOR SAFEKEEPING. PT GLASSES GIVEN TO FOR SAFEKEEPING.
--- NOTE | 2023-02-11 11:33 | NUR ---
ARRIVAL TO UNIT ARRIVES IN HOSPITAL BED. ASSESSMENT CHARTED. PLEASANT & COOPERATIVE. DENIES N/V SO SUGAR FREE JELLO & WATER GIVEN.
--- NOTE | 2023-02-11 18:38 | NUR ---
SHIFT SUMMARY PT HAS DONE WELL POST OP. EATING, DRINKING, & VOIDING. WORKED w/ THERAPY & PAIN CONTROLLED.
[2023-02-12 04:34] VITALS: BP 119/61
[2023-02-12 05:00] LABS: BASOPHILS ABSOLUTE AUTO 0.01 K/mm3 (0.00-0.23); BASOPHILS PERCENT AUTO 0 % (0-2); EOSINOPHILS PERCENT AUTO 0 % (0-6); Hematocrit 29.2 % (33.0-51.0); Hemoglobin 10.2 g/dL (11.5-16.0); IMMATURE GRAN ABSOLUTE AUTO 0.04 K/mm3 (0.00-0.10); IMMATURE GRAN PERCENT AUTO 1 % (0-1); LYMPHOCYTES ABSOLUTE AUTO 0.31 K/mm3 (0.84-5.20); LYMPHOCYTES PERCENT AUTO 4 % (21-46); MONOCYTES PERCENT AUTO 10 % (4-13); Mean Corpuscular HGB 30.9 pg (26.0-34.0); Mean Corpuscular HGB Conc 34.9 g/dL (31.5-36.5); Mean Corpuscular Volume 89 fL (80-100); Mean Platelet Volume 10.5 fL (9.1-12.4); NEUTROPHILS ABSOLUTE AUTO 6.67 K/mm3 (1.96-9.15); NEUTROPHILS PERCENT AUTO 85 % (41-73); Platelet Count 158 K/mm3 (150-400); RDW Coefficient Variation 14.1 % (11.7-14.2); RDW Standard Deviation 45.6 fL (35.1-46.3); White Blood Cell Count 7.83 K/mm3 (4.00-11.30)
--- NOTE | 2023-02-12 05:33 | NUR ---
SHIFT SUMMARY POD 1, L TOTAL HIP. DERMABOND PRINEO DRESSING C/D/I, POLAR PACK IN PLACE. PEDAL PULSES FAINT R/T 2+ EDEMA BL. PT REPORTS BASELINE SWELLING W/ REDNESS TO TOP OF LEFT FOOT R/T HX OF DVT. PT DECLINES NEED FOR PAIN MEDS OTHER THAN SCHEDULED. PT AMB TO BATHROOM W/ INCONT. TENA/ SCD'S REPLACED R/T URINE SOAKED. PT REQUESTED FULL ATTENDS FOR URGENCY INCONT. USE OF HOME CPAP DURING SLEEP. NO ACUTE CHANGES THIS SHIFT. CALL LIGHT W/IN REACH.
[2023-02-12 05:57] LABS: Bun/Creatinine Ratio 23.4 (12.0-20.0); Calcium, Blood 8.5 mg/dL (8.5-10.1); Creatinine, Blood 0.64 mg/dL (0.40-1.00); Potassium, Blood 3.8 mmol/L (3.5-5.5)
--- NOTE | 2023-02-12 06:12 | NUR ---
CRITICAL LAB MAG 1.0 RECIEVED CALL FROM [facility] NOTIFIED BY ISATU STOREY VIA TEXT, AWAITING RETURN NOTIFY
[2023-02-12 07:18] VITALS: BP 129/57
[2023-02-12] MEDS ORDERED: ASPI81CH PO (10:15)
[2023-02-12] MEDS ORDERED: ACET500 PO (10:15)
--- NOTE | 2023-02-12 12:07 | NUR ---
DISCHARGE PT HAS CLEARED THERAPY. PAIN WELL CONTROLLED. EATING, DRINKING, & VOIDING WELL. DRSG & POLAR PACK SENT w/ PT. ESCORTED OUT VIA W/C.
== END 2023-02-12 11:30 | disposition home or self-care (01) ==
LOC: ORSCMMR 06:17 → ORD 07:30 → SURS 11:01 → ORSCMMR 02-12 11:30
PROVIDERS: Orthopaedic Surgery
PROC: 0SRB0J9 Replacement of Left Hip Joint with Synthetic Substitute, Cemented, Open Approach (ICD-10-PCS; principal; 2023-02-11 07:30)
DX: M16.12 Unilateral primary osteoarthritis, left hip (principal); E11.9 Type 2 diabetes mellitus without complications; E78.5 Hyperlipidemia, unspecified; I10 Essential (primary) hypertension; K74.60 Unspecified cirrhosis of liver; K75.4 Autoimmune hepatitis; Z87.891 Personal history of nicotine dependence; Z79.899 Other long term (current) drug therapy; G47.33 Obstructive sleep apnea (adult) (pediatric); Z86.718 Personal history of other venous thrombosis and embolism; Z79.84 Long term (current) use of oral hypoglycemic drugs
CPT/HCPCS: 36415; 36416; 72170; 80048; 82947; 83735; 85025; 94660; 94762; 97110; 97116; 97162; A9270; C1713; C1776; J0171; J0690; J0735; J0780; J1100; J1885; J2250; J2704; J2795; J3010; J3475; J7120

== ENCOUNTER → 2023-02-26 | Outpatient (CLI) | payer OTHER ==
[~2023-02-26] MED LIST changes: +ASPI81CH PO
== END | disposition home or self-care (01) ==
LOC: LAB SHORT 16:30 → LAB 16:30
DX: M96.842 Postprocedural seroma of a musculoskeletal structure following a musculoskeletal system procedure (principal); Z96.642 Presence of left artificial hip joint
CPT/HCPCS: 87205

== ENCOUNTER 2023-03-01 07:30 | Inpatient (IN) | payer OTHER ==
[~2023-03-01] VITALS: Ht 175.3 cm; Wt 91.6 kg
[2023-03-01] VITALS (18 sets, daily range): BP systolic 102–145; BP diastolic 43–79
[2023-03-01] MEDS ORDERED: XARELTO20 MG PO (12:15)
[2023-03-01] MEDS ORDERED: EMGALITY S120 MG/1 M SC (12:23)
--- NOTE | 2023-03-01 12:59 | NUR ---
PTS GLASSES AND DENTURES PLACED IN HER BELONGS BAG BY HER GRANDDAUGHTER.
--- NOTE | 2023-03-01 13:06 | NUR ---
History, Chart, Medications and Allergies reviewed before start of procedure. Lungs clear T/O to Auscultation. Patient confirms NPO status and agrees with scheduled surgery. Pre-Op teaching done. Pt verbalizes understanding. HEALING INCISION TO LEFT HIP, SCAB NOTED UP AT TOP AND A FEW SPOTS ALONG THE INCISION LINE. NO REDNESS OR DRAINING.
--- NOTE | 2023-03-01 17:33 | NUR ---
PATIENT ARRIVED TO FLOOR FROM PACU TODAY AT 1645. POD 0 LEFT HIP I&D PATIENT HAS A HX OF DEMENTIA AND IS A&OX2. SHE IS ABLE TO MAKE HER NEEDS KNOWN AND GIVE HER BUT DOES NOT KNOW WHERE SHE IS OR WHY SHE IS HERE. SHE IS ON 2L NC WITH >90% OXYGEN SATS AND DENIES SOB OR CHEST PAIN. HER LEFT HIP HAS GAUZE AND FOAM TAPE THAT IS C/D/I. PATIENT DENIES NUMBNESS OR TINGLING. SHE REFUSES PAIN MEDICATIONS AT THIS TIME. PATIENT IS TOLERATING SMALL AMOUNTS OF PO INTAKE. SHE IS LAYING IN BED WITH BED ALARM ON DUE TO HX OF DEMENTIA AND CALL LIGHT WITHIN REACH.
[2023-03-02 02:55] VITALS: BP 137/63
[2023-03-02 04:10] LABS: BASOPHILS PERCENT AUTO 0 % (0-2); EOSINOPHILS PERCENT AUTO 0 % (0-6); Hemoglobin 10.5 g/dL (11.5-16.0); IMMATURE GRAN ABSOLUTE AUTO 0.01 K/mm3 (0.00-0.10); IMMATURE GRAN PERCENT AUTO 0 % (0-1); LYMPHOCYTES ABSOLUTE AUTO 0.27 K/mm3 (0.84-5.20); LYMPHOCYTES PERCENT AUTO 7 % (21-46); MONOCYTES ABSOLUTE AUTO 0.25 K/mm3 (0.16-1.47); MONOCYTES PERCENT AUTO 7 % (4-13); Mean Corpuscular HGB 30.3 pg (26.0-34.0); Mean Corpuscular HGB Conc 33.9 g/dL (31.5-36.5); Mean Corpuscular Volume 89 fL (80-100); Mean Platelet Volume 9.6 fL (9.1-12.4); NEUTROPHILS PERCENT AUTO 86 % (41-73); Platelet Count 275 K/mm3 (150-400); RDW Coefficient Variation 14.6 % (11.7-14.2); RDW Standard Deviation 47.3 fL (35.1-46.3); Red Blood Cell Count 3.47 M/mm3 (3.80-5.20); White Blood Cell Count 3.73 K/mm3 (4.00-11.30)
[2023-03-02 04:41] LABS: Bun/Creatinine Ratio 17.7 (12.0-20.0); Calcium, Blood 9.1 mg/dL (8.5-10.1); Creatinine, Blood 0.74 mg/dL (0.40-1.00); Magnesium, Blood 1.5 mg/dL (1.6-2.4)
--- NOTE | 2023-03-02 05:28 | NUR ---
SHIFT SUMMARY NO ACUTE CHANGES THIS SHIFT. PT DECLINES PAIN MEDICATIONS. LEFT HIP DRESSING REMAINS CDI. UP WITH 1-2 ASSIST WITH FWW + GB TO BSC USING TTWB. PLAN TO WORK WITH THERAPY TODAY. USES CALL LIGHT APPROPRIATELY. BED ALARM IN PLACE FOR SAFETY.
[2023-03-02 07:29] VITALS: BP 131/62
[2023-03-02 16:00] VITALS: BP 151/73
--- NOTE | 2023-03-02 16:12 | NUR ---
SHIFT SUMMARY POD 1 L HIP I&D DRESSING CHANGED TWICE TODAY R/T MODERATE SEROSANGUINOUS DRAINAGE. DRESSING CURRENTLY CDI. PLAN TO REASSESS AND CHANGE PRN NEEDED PER DR. MEZA. PT DENIES PAIN TODAY, UP TO CHAIR FOR MOST OF MORNING, TRANSFERING WELL. NEEDS FREQUENT REMINDERS TO MAINTAIN TOE TOUCH STATUS. CALLS APPROPRIATLY.
[2023-03-02 19:16] VITALS: BP 152/60
[2023-03-03 03:55] VITALS: BP 153/68
[2023-03-03 06:09] LABS: Vancomycin, Trough 24.5 ug/mL (5.0-10.0)
[2023-03-03 06:35] LABS: Creatinine, Blood 0.81 mg/dL (0.40-1.00)
[2023-03-03 07:19] VITALS: BP 149/69
--- NOTE | 2023-03-03 07:31 | NUR ---
SHIFT SUMMARY POD2 L HIP I&D, DRESSING C/D/I, CHANGED 1X T/O NIGHT. PT MEDICATED X1 FOR PAIN THIS SHIFT. AMB TO BATHROOM W/ ASSIST, TOE TOUCH REMINDERS, URINATING WELL. VANCO ORDERS CHANGED PER PHARMACY THIS A.M. NO ACUTE CHANGES THIS SHIFT. PT PLEASANT AND COOPERATIVE. CPAP IN USE DURING SLEEP. CALL LIGHT W/IN REACH.
--- NOTE | 2023-03-03 11:36 | NUR ---
DRESSING TO LEFT HIP CHANGED TO A ZULEMA DRESSING PER DR. MEZA REQUEST. PT TOLERATED WELL, FOAM COMPRESSED. 10CM X 20CM SIZE DRESSING USED. CLEANED INCISION WITH WOUND CLEANSER PRIOR TO APPLICATION.
[2023-03-03 16:30] VITALS: BP 146/73
--- NOTE | 2023-03-03 17:02 | NUR ---
SHIFT SUMMARY POD 2 L HIP I&D PICCO DRESSING TO HIP REMAINS CDI. PT HAS BEEN UP TO BESIDE COMMODE AND CHAIR T/O SHIFT. CONTINUES TO DENY PAIN DURING SHIFT. TOLERATING DIET WELL. PLAN IS TO CONTINUE WORKING WITH PT AND RECIEVE IV ABX.
[2023-03-03 19:38] VITALS: BP 144/77
--- NOTE | 2023-03-04 00:55 | NUR ---
CALL FROM FAMILY RECEIVED CALL FROM FAMILY REPORTING THAT PT KEEPS CALLING THEM AND TELLING THEM SHE IS BEING HELD HOSTAGE BY STAFF. UPON ENTERING PT ROOM, SHE IS ON THE PHONE WITH SPOUSE AND REQUESTS THIS NURSE TO TALK TO HIM. INFORMS ME, PT REPORTED THAT EVERYONE WENT ACROSS THE STREET. AWARE OF PT CONFUSION AND INFORMS THAT PT ALLERGIC TO SPECIFIC NARCOTICS. I INFORMED THAT PT HAS NOT RECEIVED ANY NARCOTICS TODAY. PHONE WAS SET ON SIDE TABLE AND PT ASSISTED TO GET TUCKED IN BED.
[2023-03-04 04:57] VITALS: BP 160/88
--- NOTE | 2023-03-04 06:03 | NUR ---
SHIFT SUMMARY POD 3 L HIP I&D. PT NPO @MN FOR POSSIBLE REPEAT PROCEDURES INCLUDING WOUND VAC. ZULEMA DRESSING TO LEFT HIP C/D/I W/ SMALL AMT OF DRAINAGE VISIBLE. PT EPISODE OF CONFUSION DURING NIGHT PREVIOUSLY DOCUMENTED, W/ NO OTHER EPISODES. SLEPT WELL REMAINDER OF NIGHT. CPAP IN USE, CALL LIGHT W/IN REACH. WILL REPORT TO ONCOMING STAFF
[2023-03-04 07:04] VITALS: BP 167/79
[2023-03-04 14:28] VITALS: BP 150/91
[2023-03-04 14:54] LABS: Vancomycin, Trough 27.7 ug/mL (5.0-10.0)
[2023-03-04 19:42] VITALS: BP 166/84
--- NOTE | 2023-03-04 19:51 | NUR ---
SHIFT SUMMARY PT IS POD#3 FROM I&D OF L HIP WITH DR. MEZA. PT IS A 1 PERSON ASSIST FOR TRANSFERS, SHE DOES HAVE DIFFICULTY MAINTAINING WEIGHT BEARING STATUS. PT HAS HAD A DECREASED APPETITE AND HAS DECLINED MEALS THIS SHIFT, PT STATES SHE DOESN'T HAVE AN APPETITE. PT ENCOURAGED TO EAT AND EDUCATED ABOUT THE IMPORTANCE OF NUTRITION FOR WOUND HEALING. REPORT GIVEN TO SARIAH WEBBER.
[2023-03-05 03:22] VITALS: BP 145/71
[2023-03-05 04:02] LABS: Vancomycin, Random 25.8 ug/mL
--- NOTE | 2023-03-05 05:49 | NUR ---
SHIFT SUMMARY NO ACUTE CHANGES NOTED THROUGH THE NIGHT, PT HAS BEEN RESTING WELL, VSS, CPAP WHILE SLEEPING, SBA W/FWW, PT CONTINUES TO REFUSE SNACKS, TOLERATING PO FLUID, VOIDING WNL, TYLENOL GIVEN FOR PAIN, DRSG REMAINS C/D/I, Q2 PRN ASSIST W/REPOSITIONING, WCTM & REPORT TO DAY RN, CALL LIGHT IN REACH
[2023-03-05 07:06] VITALS: BP 139/64
--- NOTE | 2023-03-05 09:15 | NUR ---
AM NOTE SLEPT IN w/ CPAP, EATING BREAKFAST IN BED. DECLINED OOB TO CHAIR. PLEASANT & ALERT BUT SLIGHTLY FORGETFUL. L HIP w/ ZULEMA. SCANT DRNG; YELLOW. LUNGS CLEAR. DENIES PAIN BUT ENCOURAGED PT TO TAKE TYLEONOL w/ AM MEDS; AGREEABLE & STATES SHE WILL HAVE A FEW MORE BITES BEFORE RADY FOR MORNING MEDS.
[2023-03-05 14:16] LABS: SARS-Cov-2 (COVID-19) PCR, MMC NEGATIVE (NEGATIVE)
[2023-03-05 14:21] VITALS: BP 141/65
--- NOTE | 2023-03-05 16:30 | NUR ---
DISCHARGE TO [facility] ALERT & ORIENTED BUT FORGETFUL. HAS BEEN AT BEDSIDE T/O DAY; ATTENTIVE & LOVING. WORKED w/ PT. MULT BM's. TAKING IN BITES, BUT STILL NOT MUCH APPETITE. L HIP, ANTERIOR w/ ZULEMA DRSG w/ MIN DRCOURTNEY. POWERGLIDE LEFT IN PLACE FOR VANCO PER DR MEZA.
== END 2023-03-05 16:11 | DRG 921 ==
LOC: PRE IP 07:30 → SURS 09:53 → PRE IP 10:58 → SURS 16:11
PROVIDERS: Pharmacist; ADMIT Orthopaedic Surgery
PROC: 3E0U329 Introduction of Other Anti-infective into Joints, Percutaneous Approach (ICD-10-PCS; 2023-03-01)
PROC: 0J9C3ZZ Drainage of Pelvic Region Subcutaneous Tissue and Fascia, Percutaneous Approach (ICD-10-PCS; principal; 2023-03-01 12:30)
DX: M96.842 Postprocedural seroma of a musculoskeletal structure following a musculoskeletal system procedure (principal); Y83.8 Other surgical procedures as the cause of abnormal reaction of the patient, or of later complication, without mention of misadventure at the time of the procedure; E11.9 Type 2 diabetes mellitus without complications; E78.5 Hyperlipidemia, unspecified; I10 Essential (primary) hypertension; M54.9 Dorsalgia, unspecified; Z20.822 Contact with and (suspected) exposure to COVID-19; Z90.49 Acquired absence of other specified parts of digestive tract; Z87.19 Personal history of other diseases of the digestive system; Z87.81 Personal history of (healed) traumatic fracture; Z96.641 Presence of right artificial hip joint; Z90.710 Acquired absence of both cervix and uterus; Z90.89 Acquired absence of other organs; Z98.890 Other specified postprocedural states; Z87.891 Personal history of nicotine dependence; Z88.2 Allergy status to sulfonamides; Z91.048 Other nonmedicinal substance allergy status
CPT/HCPCS: 36415; 72170; 80048; 80202; 82565; 82947; 83735; 85025; 87070; 87071; 87075; 87205; 94660; 94762; 97110; 97162; 97166; 97530; 97535; A9270; J1100; J1580; J2371; J2405; J2543; J2704; J3010; J3370; J3420; J7050; J7120; U0002

== ENCOUNTER 2023-03-26 15:00 | Emergency (ER) | payer OTHER ==
[~2023-03-26] VITALS: Ht 177.8 cm; Wt 90.7 kg
[~2023-03-26 15:00] MED LIST changes: +EMGALITY S120 MG/1 M SC; +XARELTO20 MG PO
[2023-03-26 15:31] LABS: BASOPHILS ABSOLUTE AUTO 0.03 K/mm3 (0.00-0.23); BASOPHILS PERCENT AUTO 1 % (0-2); EOSINOPHILS ABSOLUTE AUTO 0.09 K/mm3 (0.00-0.68); EOSINOPHILS PERCENT AUTO 1 % (0-6); Hematocrit 34.8 % (33.0-51.0); Hemoglobin 11.5 g/dL (11.5-16.0); IMMATURE GRAN ABSOLUTE AUTO 0.02 K/mm3 (0.00-0.10); IMMATURE GRAN PERCENT AUTO 0 % (0-1); LYMPHOCYTES PERCENT AUTO 9 % (21-46); MONOCYTES PERCENT AUTO 8 % (4-13); Mean Corpuscular HGB 29.1 pg (26.0-34.0); Mean Corpuscular Volume 88 fL (80-100); NEUTROPHILS ABSOLUTE AUTO 5.23 K/mm3 (1.96-9.15); NEUTROPHILS PERCENT AUTO 81 % (41-73); Platelet Count 151 K/mm3 (150-400); RDW Coefficient Variation 14.2 % (11.7-14.2); RDW Standard Deviation 45.7 fL (35.1-46.3); Red Blood Cell Count 3.95 M/mm3 (3.80-5.20); White Blood Cell Count 6.47 K/mm3 (4.00-11.30)
[2023-03-26 15:43] LABS: Albumin, Blood 3.3 g/dL (3.4-5.0); Albumin/Globulin Ratio 0.9 (0.8-1.8); Bilirubin, Total 0.5 mg/dL (0.1-1.0); Bun/Creatinine Ratio 14.6 (12.0-20.0); Calcium, Blood 8.3 mg/dL (8.5-10.1); Creatinine, Blood 1.57 mg/dL (0.40-1.00); Globulin, Blood 3.8 g/dL (2.2-4.0); Potassium, Blood 3.3 mmol/L (3.5-5.5); Total Protein, Blood 7.1 g/dL (6.4-8.2)
[2023-03-26 16:44] LABS: International Normalized Ratio 1.14; Prothrombin Time Results 11.9 Sec (9.7-11.5)
[2023-03-26 18:15] VITALS: BP 135/78
[2023-03-26] MEDS ORDERED: ONDA4ODT MM (18:23)
== END 2023-03-26 19:01 | disposition home or self-care (01) ==
LOC: ER 15:00
PROVIDERS: Student in an Organized Health Care Education/Training Program
DX: E83.42 Hypomagnesemia (principal); E87.6 Hypokalemia; R51.9 Headache, unspecified; M54.2 Cervicalgia; R11.2 Nausea with vomiting, unspecified; I10 Essential (primary) hypertension; R00.0 Tachycardia, unspecified; E11.9 Type 2 diabetes mellitus without complications; E78.5 Hyperlipidemia, unspecified; K74.60 Unspecified cirrhosis of liver; Z88.2 Allergy status to sulfonamides; Z79.899 Other long term (current) drug therapy; Z79.84 Long term (current) use of oral hypoglycemic drugs; Z79.01 Long term (current) use of anticoagulants; Z79.51 Long term (current) use of inhaled steroids; Z91.81 History of falling; Z87.891 Personal history of nicotine dependence
CPT/HCPCS: 51701; 70450; 72125; 80053; 83735; 85025; 85610; 93005; 93010; 96361-59; 96365-59; 96375-59; 99284-25; A9270; J2405; J3475; J7030

== ENCOUNTER 2023-12-28 17:36 | Inpatient (IN) | payer OTHER ==
[~2023-12-28] VITALS: Ht 177.8 cm; Wt 82.6 kg
[~2023-12-28 17:36] MED LIST changes: +ONDA4ODT MM
[2023-12-28] MEDS ORDERED: HYDROmorphone HCl/Pf 1MG SYR IV PRN ×3 (18:25→20:10)
[2023-12-28] MEDS ORDERED: AMLODIPINE (18:45)
[2023-12-28] MEDS ORDERED: EMGALITY (18:46)
[2023-12-28] MEDS ORDERED: TOLTERODINE TART4 MG PO (18:46)
[2023-12-28] MEDS ORDERED: CARV3.125 PO (18:47)
[2023-12-28] MEDS ORDERED: DULOXETINE (18:48)
[2023-12-28 18:49] LABS: BASOPHILS ABSOLUTE AUTO 0.02 K/mm3 (0.00-0.23); BASOPHILS PERCENT AUTO 0 % (0-2); EOSINOPHILS ABSOLUTE AUTO 0.04 K/mm3 (0.00-0.68); EOSINOPHILS PERCENT AUTO 1 % (0-6); Hematocrit 34.2 % (33.0-51.0); Hemoglobin 11.6 g/dL (11.5-16.0); IMMATURE GRAN ABSOLUTE AUTO 0.01 K/mm3 (0.00-0.10); IMMATURE GRAN PERCENT AUTO 0 % (0-1); LYMPHOCYTES ABSOLUTE AUTO 0.33 K/mm3 (0.84-5.20); LYMPHOCYTES PERCENT AUTO 7 % (21-46); MONOCYTES PERCENT AUTO 8 % (4-13); Mean Corpuscular HGB 30.5 pg (26.0-34.0); Mean Corpuscular HGB Conc 33.9 g/dL (31.5-36.5); Mean Corpuscular Volume 90 fL (80-100); Mean Platelet Volume 10.8 fL (9.1-12.4); NEUTROPHILS ABSOLUTE AUTO 4.29 K/mm3 (1.96-9.15); NEUTROPHILS PERCENT AUTO 84 % (41-73); Platelet Count 219 K/mm3 (150-400); RDW Coefficient Variation 14.7 % (11.7-14.2); White Blood Cell Count 5.09 K/mm3 (4.00-11.30)
[2023-12-28 18:57] LABS: Bun/Creatinine Ratio 21.6 (12.0-20.0); Creatinine, Blood 1.02 mg/dL (0.40-1.00); International Normalized Ratio 1.04; Potassium, Blood 4.6 mmol/L (3.5-5.5); Prothrombin Time Results 11.1 Sec (9.7-11.5)
[2023-12-28] MEDS ORDERED: CeFAZolin Sodium 2,000 MG in NS 100 ML IV SCH (19:20)
[2023-12-28] MEDS ORDERED: Ondansetron HCl 2 MG / ML 2ML Vial IV PRN (19:35)
[2023-12-28] MEDS ORDERED: HydrALAZINE HCl 20 MG / ML 1ML Vial IV PRN (19:35)
[2023-12-28] MEDS ORDERED: OxyCODONE HCL 5 MG TAB PO PRN (19:35)
[2023-12-28] MEDS ORDERED: FentaNYL Citrate 50 MCG/ML 2 ML Injection IV ONE (20:00)
[2023-12-28] MEDS ORDERED: Carvedilol 3.125 MG Tab PO SCH (21:00)
[2023-12-28 22:35] VITALS: BP 153/88
[2023-12-28] MEDS ORDERED: DULO60 (22:45)
[2023-12-28] MEDS ORDERED: EMGALITY120 MG/1 M SQ (22:45)
[2023-12-28] MEDS ORDERED: ZINC7.5 MG (22:53)
[2023-12-28] MEDS ORDERED: [UNRECOGNIZED DRUG - OTHER] PO (22:53)
[2023-12-28] MEDS ORDERED: VIT D3-VIT K21 EACH PO (22:54)
[2023-12-28] MEDS ORDERED: TURMERIC500 M2 PO (22:54)
[2023-12-29] VITALS (18 sets, daily range): BP systolic 97–161; BP diastolic 57–92
[2023-12-29] MEDS ORDERED: NS 1,000 ML IV SCH (05:00)
--- NOTE | 2023-12-29 05:33 | NUR ---
SHIFT SUMMARY PT ADMITTED FOR L FEMUR FX THIS SHIFT. 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 SPLINT PLACED IN THE ER, REMAINS C/D/I. CAP REFILL 2 SECS IN L TOES, PT ABLE TO WIGGLE TOES BILATERALLY. PT WORE CPAP WHILE SLEEPING, CONT BIOX IN PLACE, O2 SATS >92% W/ CPAP. PT MEDICATED FOR PAIN AND NAUSEA THIS SHIFT. NPO SINCE 0000 FOR SURGERY IN AM. PT SLEPT MOST OF SHIFT. CALL LIGHT IN REACH, STAYED THE NIGHT IN RECLINER.
[2023-12-29] MEDS ORDERED: Pantoprazole Sodium 40 MG Tab PO SCH (06:00)
[2023-12-29] MEDS ORDERED: Trospium Chloride 20 MG Tab PO SCH (07:30)
[2023-12-29] MEDS ORDERED: Acetaminophen 500 MG Tab PO SCH (08:10)
[2023-12-29] MEDS ORDERED: SUMA25 PO (08:24)
[2023-12-29] MEDS ORDERED: HYDROcodone 5-APAP 325 TAB PO PRN (08:50)
[2023-12-29] MEDS ORDERED: AmLODIPine Besylate 5 MG Tab PO SCH (09:00)
[2023-12-29] MEDS ORDERED: DULoxetine HCL 60 MG Capsule DR PO SCH ×2 (09:00→18:00)
[2023-12-29] MEDS ORDERED: AzaTHIOprine 50 MG Tab PO SCH (09:00)
[2023-12-29] MEDS ORDERED: Atorvastatin 10 MG Tab PO SCH (09:00)
[2023-12-29] MEDS ORDERED: Lactated Ringer's 1,000 ML IV ONE (09:28)
[2023-12-29] MEDS ORDERED: propofoL 20 ML IV ONE (09:36)
[2023-12-29] MEDS ORDERED: propofoL 100 ML IV ONE (09:41)
--- NOTE | 2023-12-29 09:42 | NUR ---
PT IN PACU FOR PRE-OP AT 5097
--- NOTE | 2023-12-29 09:44 | NUR ---
GITA KEITH HEAD OF DIGITAL ADVERTISING & INTEGRATION AT BEDSIDE CONSULTING PT
[2023-12-29] MEDS ORDERED: Bupivacaine 0.75%/Dext 8.25% 2 ML Amp IT ONE (10:13)
[2023-12-29] MEDS ORDERED: Phenylephrine HCl 100 MCG/ML-NS 10MLSYR (1MG/10ML) ONE (10:35)
[2023-12-29] MEDS ORDERED: Dexamethasone Sod Phos 10 MG/ML 1ML VIAL ONE (10:39)
[2023-12-29] MEDS ORDERED: Ondansetron HCl 2 MG / ML 2ML Vial ONE (10:39)
--- NOTE | 2023-12-29 12:34 | NUR ---
12/29/23 1234 Sherita Damon PATIENT ARRIVED TO OR WITH AYALA CATHETER IN PLACE DRAINING YELLOW URINE.
[2023-12-29] MEDS ORDERED: AzaTHIOprine 50 MG Tab PO ONE (16:15)
[2023-12-29] MEDS ORDERED: CeFAZolin Sodium 2,000 MG in NS 100 ML IV SCH (18:00)
--- NOTE | 2023-12-29 18:16 | NUR ---
SHIFT SUMMARY S/P ORIF L DISTAL FEMUR PROSTHETIC FX, IMMOBILIZER ON, NWB. A&OX4/ BEDSIDE, VSS/2LNC/DENTURES/WEARS CPAP NOC, DIANE PO, AYALA PATENT & DRAINING YELLOW URINE/STAT LOCK ON/OFF FLOOR, BEDREST, PAIN MANAGED WITH NORCO 5 MG, IVF @ 75 MLS/HR AND ABX PER EMAR PRN. WILL REPORT TO ONCOMING SARIAH WEBBER.
[2023-12-29] MEDS ORDERED: Insulin Human Lispro 100 Units/ML 3ML Syringe SC SCH ×2 (21:00)
[2023-12-30 04:06] LABS: BASOPHILS ABSOLUTE AUTO 0.01 K/mm3 (0.00-0.23); BASOPHILS PERCENT AUTO 0 % (0-2); EOSINOPHILS PERCENT AUTO 0 % (0-6); Hematocrit 25.9 % (33.0-51.0); Hemoglobin 8.8 g/dL (11.5-16.0); IMMATURE GRAN ABSOLUTE AUTO 0.02 K/mm3 (0.00-0.10); IMMATURE GRAN PERCENT AUTO 0 % (0-1); LYMPHOCYTES ABSOLUTE AUTO 0.24 K/mm3 (0.84-5.20); LYMPHOCYTES PERCENT AUTO 5 % (21-46); MONOCYTES ABSOLUTE AUTO 0.71 K/mm3 (0.16-1.47); MONOCYTES PERCENT AUTO 15 % (4-13); Mean Corpuscular HGB 30.7 pg (26.0-34.0); Mean Corpuscular Volume 90 fL (80-100); Mean Platelet Volume 10.6 fL (9.1-12.4); NEUTROPHILS ABSOLUTE AUTO 3.83 K/mm3 (1.96-9.15); NEUTROPHILS PERCENT AUTO 80 % (41-73); Platelet Count 156 K/mm3 (150-400); RDW Coefficient Variation 14.5 % (11.7-14.2); RDW Standard Deviation 47.7 fL (35.1-46.3); Red Blood Cell Count 2.87 M/mm3 (3.80-5.20); White Blood Cell Count 4.81 K/mm3 (4.00-11.30)
[2023-12-30 04:34] LABS: Bun/Creatinine Ratio 21.3 (12.0-20.0); Calcium, Blood 8.9 mg/dL (8.5-10.1); Creatinine, Blood 0.85 mg/dL (0.40-1.00); Potassium, Blood 3.7 mmol/L (3.5-5.5)
[2023-12-30 05:10] VITALS: BP 130/66
--- NOTE | 2023-12-30 05:31 | NUR ---
SHIFT SUMMARY PT IS POD1 FOR A L FEMUR ORIF W/ DR GOLDBERG. PT IS A/O X3-4, RESPONSIVE, RESTED MOST OF SHIFT. PT DENIES PAIN AND NAUSEA. CPAP WORN WHILE SLEEPING W/ CONT BIOX IN PLACE, RA WHILE AWAKE, O2 SATS 92%. PT TOLERATING REG DIET AND FLUIDS. IV FLUIDS RUNNING PER EMAR. VSS. SCDS ON. DRESSING REMAINS C/D/I, IMMOBILIZER IN PLACE, PEDAL PULSES STRONG. BED ALARM IN PLACE FOR SAFETY BUT PT DID NOT TRY TO GET UP THIS SHIFT AND WAS COOPERATIVE W/ STAFF. AYALA IN PLACE DRAINING YELLOW URINE. CALL LIGHT IN REACH.
[2023-12-30 07:11] VITALS: BP 141/68
[2023-12-30] MEDS ORDERED: Enoxaparin 40 MG/0.4 ML SYR SC SCH (09:00)
[2023-12-30] MEDS ORDERED: AzaTHIOprine 50 MG Tab PO SCH (09:00)
[2023-12-30 14:51] VITALS: BP 125/63
--- NOTE | 2023-12-30 18:16 | NUR ---
SHIFT SUMMARY POD1 L ORIF FOR ROMERO PROSTHETIC FX REPAIR, A/OX4, VSS, TOLERATING PO, STAND PIVOT TO BSC/CHAIR, NWB LLE, PENDING DC TO REHAB IN [place] 1-2 DAYS. NO ACUTE EVENTS, CALL LIGHT IN REACH.
[2023-12-30 20:02] VITALS: BP 142/77
[2023-12-31 03:47] VITALS: BP 133/71
[2023-12-31 05:22] LABS: BASOPHILS ABSOLUTE AUTO 0.01 K/mm3 (0.00-0.23); BASOPHILS PERCENT AUTO 0 % (0-2); EOSINOPHILS ABSOLUTE AUTO 0.01 K/mm3 (0.00-0.68); EOSINOPHILS PERCENT AUTO 0 % (0-6); Hemoglobin 8.6 g/dL (11.5-16.0); IMMATURE GRAN ABSOLUTE AUTO 0.01 K/mm3 (0.00-0.10); IMMATURE GRAN PERCENT AUTO 0 % (0-1); LYMPHOCYTES ABSOLUTE AUTO 0.46 K/mm3 (0.84-5.20); LYMPHOCYTES PERCENT AUTO 12 % (21-46); MONOCYTES ABSOLUTE AUTO 0.59 K/mm3 (0.16-1.47); MONOCYTES PERCENT AUTO 15 % (4-13); Mean Corpuscular HGB 30.7 pg (26.0-34.0); Mean Corpuscular HGB Conc 34.4 g/dL (31.5-36.5); Mean Corpuscular Volume 89 fL (80-100); Mean Platelet Volume 10.9 fL (9.1-12.4); NEUTROPHILS ABSOLUTE AUTO 2.91 K/mm3 (1.96-9.15); NEUTROPHILS PERCENT AUTO 73 % (41-73); Platelet Count 148 K/mm3 (150-400); RDW Coefficient Variation 14.4 % (11.7-14.2); RDW Standard Deviation 46.9 fL (35.1-46.3); White Blood Cell Count 3.99 K/mm3 (4.00-11.30)
[2023-12-31 05:38] LABS: Anion Gap 9 mmol/L (3-11); Blood Urea Nitrogen 14 mg/dL (8-24); Bun/Creatinine Ratio 18.8 (12.0-20.0); CO2, Blood 26 mmol/L (21-32); Calcium, Blood 8.9 mg/dL (8.5-10.1); Chloride, Blood 104 mmol/L (98-108); Creatinine, Blood 0.74 mg/dL (0.40-1.00); Glomerular Filtration Rate 80 (60-); Glucose, Blood 136 mg/dL (70-99); Phosphorus, Blood 2.5 mg/dL (2.5-4.9); Potassium, Blood 3.5 mmol/L (3.5-5.5); Sodium, Blood 135 mmol/L (136-145)
[2023-12-31 06:06] LABS: BASOPHILS PERCENT MAN 0 % (0-2); EOSINOPHILS PERCENT MAN 0 % (0-6); LYMPHOCYTES ABSOLUTE MAN 0.51 K/mm3 (0.84-5.20); LYMPHOCYTES PERCENT MAN 13 % (21-46); MONOCYTES ABSOLUTE MAN 0.35 K/mm3 (0.16-1.47); MONOCYTES PERCENT MAN 9 % (4-13); NEUTROPHILS ABSOLUTE MAN 3.11 K/mm3 (1.96-9.15); SEG NEUTROPHILS PERCENT MAN 78 % (41-73); TOTAL CELLS COUNTED 100
--- NOTE | 2023-12-31 06:24 | NUR ---
SHIFT SUMMARY NOC. POD 2 LEFT ORIF PERIPROSTHETIC FX REPAIR. PT A/O X4, PROGRESSIVE MILD FORGETFULNESS NOTED. PT'S AQUACEL C/D/I ASIDE FROM LIGHT SEROSANGUINEOUS SHADOWING. IMMOBILIZER IN PLACE. PT TOLERATING PO INTAKE. PT STRAIGHT CATH AT 1 AM FOR URINARY RETENTION. PT MEDICATED FOR PAIN X1 WITH SOME RELIEF. PT TOLERATED CPAP FOR BREIF PERIODS, BUT REMOVED MASK. BIOX IN PLACE AND NO DESAT BELOW 90% NOTED. PT RESTED WITH EYES CLOSED AND CALL LIGHT IN REACH.
[2023-12-31 07:32] VITALS: BP 145/70
[2023-12-31 14:30] VITALS: BP 137/70
--- NOTE | 2023-12-31 18:18 | NUR ---
SHIFT SUMMARY POD2 L HIP NAILING, A/OX4, VSS, TOLERATING PO, SHE HAD ONE INCONTINENT VOID THIS AM BUT HAS NOT HAD ANY OUTPUT SINCE, DEPENDS WAS WET BUT NOT ENOUGH TO BE A FULL VOID, BLADDER SCAN OF 804ML, STRAIGHT CATHED FOR 900ML. PER MD, WILL CONSIDER AYALA IF NEEDING TO STRAIGHT CATH ONE MORE TIME, WILL PASS THIS INFO ON TO NOC RN. NO OTHER EVENTS THIS SHIFT, CALL LIGHT IN REACH.
[2023-12-31 19:13] VITALS: BP 125/72
[2023-12-31] MEDS ORDERED: Protein Supplement 30 ML UD PO SCH (21:00)
[2024-01-01 03:32] VITALS: BP 141/70
[2024-01-01 06:02] LABS: BASOPHILS ABSOLUTE AUTO 0.01 K/mm3 (0.00-0.23); BASOPHILS PERCENT AUTO 0 % (0-2); EOSINOPHILS ABSOLUTE AUTO 0.03 K/mm3 (0.00-0.68); EOSINOPHILS PERCENT AUTO 1 % (0-6); Hematocrit 25.9 % (33.0-51.0); Hemoglobin 8.7 g/dL (11.5-16.0); IMMATURE GRAN ABSOLUTE AUTO 0.02 K/mm3 (0.00-0.10); IMMATURE GRAN PERCENT AUTO 1 % (0-1); LYMPHOCYTES ABSOLUTE AUTO 0.45 K/mm3 (0.84-5.20); LYMPHOCYTES PERCENT AUTO 11 % (21-46); MONOCYTES ABSOLUTE AUTO 0.48 K/mm3 (0.16-1.47); MONOCYTES PERCENT AUTO 12 % (4-13); Mean Corpuscular HGB 30.3 pg (26.0-34.0); Mean Corpuscular HGB Conc 33.6 g/dL (31.5-36.5); Mean Corpuscular Volume 90 fL (80-100); NEUTROPHILS ABSOLUTE AUTO 3.12 K/mm3 (1.96-9.15); NEUTROPHILS PERCENT AUTO 76 % (41-73); Platelet Count 157 K/mm3 (150-400); RDW Coefficient Variation 14.6 % (11.7-14.2); RDW Standard Deviation 48.4 fL (35.1-46.3); Red Blood Cell Count 2.87 M/mm3 (3.80-5.20); White Blood Cell Count 4.11 K/mm3 (4.00-11.30)
[2024-01-01 06:36] LABS: BASOPHILS PERCENT MAN 0 % (0-2); EOSINOPHILS ABSOLUTE MAN 0.04 K/mm3 (0.00-0.68); EOSINOPHILS PERCENT MAN 1 % (0-6); LYMPHOCYTES ABSOLUTE MAN 0.57 K/mm3 (0.84-5.20); LYMPHOCYTES PERCENT MAN 14 % (21-46); MONOCYTES ABSOLUTE MAN 0.16 K/mm3 (0.16-1.47); MONOCYTES PERCENT MAN 4 % (4-13); NEUTROPHILS ABSOLUTE MAN 3.32 K/mm3 (1.96-9.15); SEG NEUTROPHILS PERCENT MAN 81 % (41-73); TOTAL CELLS COUNTED 100
[2024-01-01 06:37] LABS: Bun/Creatinine Ratio 25.6 (12.0-20.0); Creatinine, Blood 0.7 mg/dL (0.40-1.00); Potassium, Blood 3.4 mmol/L (3.5-5.5)
[2024-01-01 07:17] VITALS: BP 135/79
--- NOTE | 2024-01-01 07:38 | NUR ---
SHIFT SUMMARY NOC. PT POD 3 FOR LEFT ORIF. PT DENIES PAIN THIS SHIFT. MIGEL HAS PROXIMAL SHADOWING BUT OTHERWISE C/D/I. KNEE IMMOBILIZER IN PLACE. AT BEDSIDE T/O NIGHT. PT DID NOT TOLERATE CPAP, SLEPT WITH CONTINUOUS BIOX WITHOUT DESAT EVENTS. PT NOT VOIDING, WAS BLADDER SCANNED TWICE AND BELOW THE STRAIGHT CATH PROTOCOL. LAST STRAIGHT CATH LAST NIGHT AT SHIFT CHANGE WITH LARGE OUTPUT. PT RESTED WITH EYES CLOSED AND CALL LIGHT IN REACH.
[2024-01-01] MEDS ORDERED: Potassium Chloride 20 MEQ/15 ML UDC PO ONE (08:00)
[2024-01-01 10:51] LABS: Source, Urine Foley catheter
[2024-01-01 11:02] LABS: Bilirubin, Urine Neg (Neg); Blood, Urine Neg (Neg); Glucose Qualitative, Urine Neg (Neg); Ketones, Urine Neg (Neg); Leukocyte Esterase, Urine Neg (Neg); Nitrite, Urine Neg (Neg); Protein, Urine 2+ (Neg); Specific Gravity, Urine 1.005 (1.003-1.022); Urobilinogen, Urine NORM (Normal); pH, Urine 6.5 (5.0-8.0)
[2024-01-01 11:52] LABS: Appearance, Urine Clear (Clear); Color, Urine Yellow (P-Yellow)
[2024-01-01 11:55] LABS: Bacteria Rare /hpf; Squamous Epithelial Cells Rare /hpf (Few)
--- NOTE | 2024-01-01 14:13 | NUR ---
Pt. is awake in bed and welcomes my visit. pt. is pleasant. Spouse is at bedside. Facilitate a lengthy life review and quicklly establish rapport. Considered many matters of [place] and Ministry that are meaningful to the Pt. and Spouse. Prayed with Pt. Continued life review before this aircraft quality control inspector departed. Pt. displayed evidence of engagement and aawareness. Spouse and Pt. verbalized an expectation for the Pt. to be transferred locally to [facility] and also verbalized gratitude for the spiritual care visit and welcomed this aircraft quality control inspector to return.
[2024-01-01 14:37] VITALS: BP 123/54
--- NOTE | 2024-01-01 16:56 | NUR ---
SHIFT SUMMARY: POD 3 LEFT HIP ORIF PATIENT IS A&OX3-4. VS ARE WNL AND IS ON RA. PAIN IS MANAGED WITH PO PAIN MEDS. HER LEFT LEG HAS AN AQUACEL WITH A SMALL AMOUNT OF DRAINAGE BUT IS STILL INTACT WITH THE KNEE IMMOBILIZER IN PLACE. SHE DENIES NUMBNESS OR TINGLING THROUGHOUT ALL EXTREMITIES. SHE IS ABLE TO WIGGLE ALL FINGERS AND TOES WHEN ASKED. SHE IS A 1-2 PERSON SBA WITH FWW AND GAIT BELT. AYALA IS DRAINING AND OUTPUT IS YELLOW URINE. SHE IS TOLERATING PO INTAKE AND HAD A BM LAST NIGHT AND A SMEAR EARLIER TODAY. PATIENT IS LAYING IN BED WITH CALL LIGHT IN REACH AND AT BEDSIDE. THE PLAN IS TO BE DISCHARGED TOMORROW TO [facility].
[2024-01-01 19:34] VITALS: BP 119/61
--- NOTE | 2024-01-02 05:37 | NUR ---
SUMMARY PT SLEPT TONIGHT WITH AT BEDSIDE. VERB PLAN FOR PT TO TRANSFER TO SNF TODAY.
[2024-01-02 05:53] VITALS: BP 144/72
[2024-01-02 07:22] VITALS: BP 135/72
[2024-01-02] MEDS ORDERED: Polyethylene Glycol 3350 17 gm PO SCH (09:00)
[2024-01-02] MEDS ORDERED: Docusate Sodium/Senna 1 Tab PO SCH (09:10)
[2024-01-02] MEDS ORDERED: Bisacodyl 10 MG Supp PR PRN (09:10)
[2024-01-02 11:27] LABS: SARS-Cov-2 (COVID-19) PCR, MMC NEGATIVE (NEGATIVE)
[2024-01-02 13:56] VITALS: BP 129/71
--- NOTE | 2024-01-02 14:30 | NUR ---
DISCHARGE REPORT CALLED TO ELA AT [facility] AT APPROXIMATELY 1350. VSS, WITHIN 1 HOUR PRIOR TO DISCHARGE. ELA NOTIFIED THAT BOWEL CARE WAS STARTED. PT SENT WITH AYALA CATH, ELA NOTIFIED THAT PT WILL NEED A FOLLOW-UP UROLOGY CONSULT R/T URINARY RETENSION. CLEAN DRESSINGS AND DISCHARGE PACKET SENT WITH PATIENT.
== END 2024-01-02 14:31 | DRG 481 ==
LOC: ER 17:36 → SURS 19:30
PROVIDERS: Family Medicine; Internal Medicine; Orthopaedic Surgery; Student in an Organized Health Care Education/Training Program; ADMIT Internal Medicine
PROC: 0QSC04Z Reposition Left Lower Femur with Internal Fixation Device, Open Approach (ICD-10-PCS; principal; 2023-12-29 11:30)
DX: S72.402A Unspecified fracture of lower end of left femur, initial encounter for closed fracture (principal); M97.02XA Periprosthetic fracture around internal prosthetic left hip joint, initial encounter; S72.302A Unspecified fracture of shaft of left femur, initial encounter for closed fracture; K74.60 Unspecified cirrhosis of liver; F32.A Depression, unspecified; M79.7 Fibromyalgia; K21.9 Gastro-esophageal reflux disease without esophagitis; E78.5 Hyperlipidemia, unspecified; K58.9 Irritable bowel syndrome, unspecified; G47.33 Obstructive sleep apnea (adult) (pediatric); E11.9 Type 2 diabetes mellitus without complications; M35.3 Polymyalgia rheumatica; K44.9 Diaphragmatic hernia without obstruction or gangrene; K75.4 Autoimmune hepatitis; R33.9 Retention of urine, unspecified; G43.709 Chronic migraine without aura, not intractable, without status migrainosus; I10 Essential (primary) hypertension; W18.30XA Fall on same level, unspecified, initial encounter; Z79.899 Other long term (current) drug therapy; Z79.84 Long term (current) use of oral hypoglycemic drugs; Z79.891 Long term (current) use of opiate analgesic; Z88.2 Allergy status to sulfonamides; Z79.01 Long term (current) use of anticoagulants; Z86.010 Personal history of colon polyps; Z87.19 Personal history of other diseases of the digestive system; Z90.49 Acquired absence of other specified parts of digestive tract; Z98.890 Other specified postprocedural states; Z90.89 Acquired absence of other organs; Z90.710 Acquired absence of both cervix and uterus; Z96.642 Presence of left artificial hip joint; Z87.891 Personal history of nicotine dependence; Z88.5 Allergy status to narcotic agent; Z99.89 Dependence on other enabling machines and devices
CPT/HCPCS: 36415; 51702; 73501; 73552; 73700; 80048; 80069; 81001; 82947; 85025; 85610; 85730; 86850; 86900; 86901; 93005; 93010; 94660; 94762; 97110; 97162; 97530; 99285-25; A9270; J0690; J1100; J1170; J1650; J2371; J2405; J2704; J3010; J7030; J7120; J7500; U0002

== ENCOUNTER → 2024-01-28 | Outpatient (CLI) | payer OTHER ==
[~2024-01-28] MED LIST changes: +AMLODIPINE; +CARV3.125 PO; +DULO60; +DULOXETINE; +EMGALITY; +EMGALITY120 MG/1 M SQ; +SUMA25 PO; +TOLTERODINE TART4 MG PO; +TURMERIC500 M2 PO; +VIT D3-VIT K21 EACH PO; +ZINC7.5 MG; +[UNRECOGNIZED DRUG - OTHER] PO
[2024-01-28 14:05] LABS: Source, Urine Clean Catch
[2024-01-28 15:44] LABS: Bilirubin, Urine Neg (Neg); Blood, Urine Neg (Neg); Glucose Qualitative, Urine Neg (Neg); Ketones, Urine Neg (Neg); Leukocyte Esterase, Urine 3+ (Neg); Nitrite, Urine Pos (Neg); Protein, Urine 1+ (Neg); Specific Gravity, Urine 1.015 (1.003-1.022); Urobilinogen, Urine NORM (Normal)
[2024-01-28 16:07] LABS: Color, Urine Yellow (P-Yellow)
[2024-01-28 16:08] LABS: Appearance, Urine Hazy (Clear); Bacteria Many /hpf; Mucus Light (0-Heavy); Red Blood Cells, Urine 0-2 /hpf (0-2); Squamous Epithelial Cells Few /hpf (Few); White Blood Cells, Urine 25-50 /hpf (0-5)
== END ==
LOC: LAB SHORT 13:15 → LAB 13:15
PROVIDERS: Family Medicine
DX: R30.0 Dysuria (principal)
CPT/HCPCS: 81001; 87077; 87086; 87186

== ENCOUNTER → 2024-02-13 | Outpatient (CLI) | payer OTHER ==
[2024-02-13 14:23] LABS: Source, Urine Voided
[2024-02-13 14:33] LABS: Appearance, Urine Hazy (Clear); Bilirubin, Urine Neg (Neg); Blood, Urine Neg (Neg); Color, Urine Yellow (P-Yellow); Glucose Qualitative, Urine Neg (Normal); Ketones, Urine Neg (Neg); Leukocyte Esterase, Urine 2+ (Neg); Nitrite, Urine Neg (Neg); Protein, Urine Neg (Neg); Specific Gravity, Urine 1.015 (1.003-1.022); Urobilinogen, Urine NORM (Normal)
[2024-02-13 14:34] LABS: Bacteria Not Seen /hpf; Red Blood Cells, Urine 0-2 /hpf (0-2); Squamous Epithelial Cells Rare /hpf (Few)
== END | disposition home or self-care (01) ==
LOC: LAB 06:30 → LAB SHORT 06:30
PROVIDERS: Family Medicine
DX: R30.0 Dysuria (principal); K75.4 Autoimmune hepatitis; N18.32 Chronic kidney disease, stage 3b
CPT/HCPCS: 80053; 81001; 83970; 84100; 84550; 85025; 87077; 87086; 87186

== ENCOUNTER → 2024-11-22 | Outpatient (CLI) | payer OTHER ==
[2024-11-22 09:34] LABS: Source, Urine Clean Catch
[2024-11-22 09:39] LABS: Appearance, Urine Hazy (Clear); Bilirubin, Urine Neg (Neg); Blood, Urine Neg (Neg); Color, Urine Yellow (P-Yellow); Glucose Qualitative, Urine Neg (Normal); Ketones, Urine Neg (Neg); Leukocyte Esterase, Urine Trace (Neg); Nitrite, Urine Neg (Neg); Protein, Urine Neg (Neg); Specific Gravity, Urine 1.005 (1.003-1.022); Urobilinogen, Urine NORM (Normal)
[2024-11-22 09:49] LABS: Bacteria Rare /hpf; Red Blood Cells, Urine 0-2 /hpf (0-2); Squamous Epithelial Cells Few /hpf (Few)
[2024-11-22 09:50] LABS: Amorphous Mod (0-Heavy)
== END ==
LOC: LAB 09:32 → LAB SHORT 09:32
DX: R30.0 Dysuria (principal)
CPT/HCPCS: 81001; 87086

== ENCOUNTER → 2025-01-30 | Outpatient (CLI) | payer OTHER ==
[2025-01-30 16:52] LABS: Source, Urine Voided
[2025-01-30 17:14] LABS: White Blood Cells, Urine 25-50 /hpf (0-5)
== END | disposition home or self-care (01) ==
LOC: LAB 14:10 → LAB SHORT 14:10
PROVIDERS: Family Medicine
DX: R30.9 Painful micturition, unspecified (principal)
CPT/HCPCS: 81015; 87077; 87086; 87186

== ENCOUNTER → 2025-02-09 | Outpatient (CLI) | payer OTHER | END | disposition home or self-care (01) | LOC: LAB 15:02 → LAB SHORT 15:02 | DX: N39.0 Urinary tract infection, site not specified (principal) | CPT/HCPCS: 87077; 87086; 87186 ==

== ENCOUNTER → 2025-04-21 | Outpatient (CLI) | payer OTHER | LOC: LAB SHORT 08:11 → LAB 08:11 | DX: N39.0 Urinary tract infection, site not specified (principal) | CPT/HCPCS: 87077; 87086; 87186 ==

== ENCOUNTER → 2025-05-04 | Outpatient (CLI) | payer OTHER | LOC: LAB SHORT 15:00 → LAB 15:00 | DX: R30.0 Dysuria (principal) | CPT/HCPCS: 87077; 87086; 87186 ==